=== PATIENT | male | born 1980 | race Two or more races ===

== ENCOUNTER 2022-12-26 10:08 | Inpatient (IN) | payer SELFPAY ==
[~2022-12-26] VITALS: Ht 175 cm; Wt 75.0 kg
[2022-12-26 10:20] LABS: INR 1.5 (0.9-1.15)
[2022-12-26] MEDS ORDERED: POTASSIUM CHL 20 Meq TABLET PO SCH (12:00)
[2022-12-27] MEDS ORDERED: DIGOXIN 0.25 MG TAB PO SCH (10:00)
[2022-12-27] MEDS ORDERED: amLODIPine BESYLATE 5 MG TAB PO SCH (10:00)
== END 2022-12-26 12:50 | disposition home or self-care (01) | DRG 880 ==
LOC: DOU IN ADS 10:08
PROVIDERS: ADMIT Internal Medicine Geriatric Medicine; ATTEND Internal Medicine Geriatric Medicine
DX: F41.9 Anxiety disorder, unspecified (principal)
CPT/HCPCS: 36415; 80178; 82565; 84132; 85049; 85610; G0378